=== PATIENT | male | born 1985 | race Two or more races ===

== ENCOUNTER 2021-02-12 12:06 | Emergency (ER) | payer SELFPAY ==
[~2021-02-12] VITALS: Ht 160 cm; Wt 72.6 kg
[2021-02-12 13:29] LABS: Salicylate < 1.7 mg/dL (2.8-20.0)
[2021-02-12] MEDS ORDERED: SODIUM CHLORIDE 0.9% 1,000 ML IV ONE (13:30)
[2021-02-12 13:33] LABS: Acetaminophen < 2.0 ug/mL (10-30)
[2021-02-12 16:12] VITALS: BP 89/57
== END 2021-02-12 17:19 | disposition home or self-care (01) ==
LOC: ER 12:06
DX: F10.129 Alcohol abuse with intoxication, unspecified (principal); Y90.8 Blood alcohol level of 240 mg/100 ml or more; F15.10 Other stimulant abuse, uncomplicated
CPT/HCPCS: 36415; 80320; 80329; 96360; 96361; 99283; J7030